=== PATIENT | male | born 1950 | race Caucasian/White ===

== ENCOUNTER → 2019-05-11 | Outpatient (CLI) | payer MEDICARE | LOC: M.RAD 16:53 | DX: M47.817 Spondylosis without myelopathy or radiculopathy, lumbosacral region (principal); M17.0 Bilateral primary osteoarthritis of knee; M54.42 Lumbago with sciatica, left side; M54.41 Lumbago with sciatica, right side; G89.29 Other chronic pain; M47.896 Other spondylosis, lumbar region; I87.8 Other specified disorders of veins ==

== ENCOUNTER → 2021-07-03 | Outpatient (CLI) | payer MEDICARE | LOC: M.ULTRA 08:28 | PROVIDERS: ATTEND Internal Medicine | DX: R22.1 Localized swelling, mass and lump, neck (principal) ==